=== PATIENT | female | born 1995 | race Hispanic/Latino ===

== ENCOUNTER 2019-04-03 13:18 | Emergency (ER) | payer SELFPAY ==
[2019-04-03] MEDS ORDERED: ALBUTEROL 2.5 MG/3 ML NEBU IH ONE (13:44)
[2019-04-03] MEDS ORDERED: MAGNESIUM SULFATE 2 GM/50 ML BAG IV ONE (13:44)
[2019-04-03] MEDS ORDERED: methylPREDNISolone Sod Succinate 125 MG/2 ML INJ IV ONE (13:44)
[2019-04-03] MEDS ORDERED: SODIUM CHLORIDE 0.9% 500 ML 500 ML IV ONE (13:44)
[2019-04-03] MEDS ORDERED: EPINEPHrine/PF (1:1,000) 1 MG/1 ML INJ SUB-Q ONE (13:45)
--- NOTE | 2019-04-03 13:49 | Event Note ---
Date: 04/03/19 Medical screening examination note: 23-year-old female with a history of morbid obesity, asthma, on multiple maintenance medications, reports multiple history of hospitalizations, 2 lifetime intubations, denies DVT and pulmonary embolism risk factors, presenting with cough, wheezing, shortness of breath, suspicious for asthma exacerbation. Albuterol, steroids, magnesium, fluids, subcutaneous epinephrine ordered. Patient to be placed on phototypesetting equipment monitor.
--- NOTE | 2019-04-03 14:22 | Emergency Department Report ---
ED Asthma HPI - General Chief Complaint: Adult Asthma Stated Complaint: SOB Time Seen by Provider: 04/03/19 14:20 Source: patient Mode of arrival: Ambulatory Limitations: No Limitations - History of Present Illness Initial Comments: Patient is a 23-year-old female that presents emergent complaints of shortness of breath and asthmatic sounds and cough. Patient states her cough is dry. Patient states her symptoms started at 10 AM this morning. Patient states she's been taking her nebulizer with minimal relief. Patient denies chest pain. Patient denies fever and chills. . Patient states that intubated twice in the past for her asthma. MD Complaint: "asthma attack", shortness of breath, wheezing -: Sudden Asthma History: childhood onset, history of frequent attac, previously intubated Severity: severe Context: recent URI Associated Symptoms: dry cough. denies: productive cough, fever, chest pain, hemoptysis, leg edema, syncope Treatments Prior to Arrival: inhaled bronchodilator - Related Data Current Asthma Therapy: inhaled bronchodilator Previous Rx's Medication Instructions Recorded Last Taken Type Benzonatate [Tessalon Perles] 100 mg PO Q8HR #20 capsule 02/23/18 Unknown Rx predniSONE [Deltasone] 50 mg PO QDAY #7 tab 02/23/18 Unknown Rx Albuterol Sulfate [Ventolin HFA] 2 puff IH Q4H PRN #1 hfa.aer.ad 03/24/18 Unknown Rx ALBUTEROL Inhaler (OR & NICU) 2 puff IH QID PRN #1 inhalation 04/03/19 Unknown Rx [ProAir HFA Inhaler] Doxycycline Hyclate [Doxycycline 100 mg PO Q12HR 10 Days #20 tab 04/03/19 Unknown Rx Hyclate TAB] Prednisone [predniSONE 10 mg 10 mg PO .TAPER #1 tab.ds.pk 04/03/19 Unknown Rx (6-Day Pack, 21 Tabs)] Allergies Allergy/AdvReac Type Severity Reaction Status Date / Time chlorpheniramine Allergy Swelling Verified 04/03/19 13:20 [From Dallergy] phenylephrine [From Dallergy] Allergy Swelling Verified 04/03/19 13:20 scopolamine [From Dallergy] Allergy Swelling Verified 04/03/19 13:20 ED Review of Systems ROS: Stated complaint: SOB Other details as noted in HPI Constitutional: denies: chills, fever Eyes: denies: eye pain, eye discharge, vision change ENT: denies: ear pain, throat pain Respiratory: cough, shortness of breath, SOB with exertion, SOB at rest, wheezing Cardiovascular: denies: chest pain, palpitations Endocrine: no symptoms reported Gastrointestinal: denies: abdominal pain, nausea, diarrhea Genitourinary: denies: urgency, dysuria, discharge Musculoskeletal: denies: back pain, joint swelling, arthralgia Skin: denies: rash, lesions Neurological: denies: headache, weakness, paresthesias Psychiatric: denies: anxiety, depression Hematological/Lymphatic: denies: easy bleeding, easy bruising ED Past Medical Hx - Past Medical History Previous Medical History?: Yes Hx Asthma: Yes (intubated x2) - Surgical History Past Surgical History?: Yes Additional Surgical History: wisdom teeth - Family History Family history: no significant - Social History Smoking Status: Never Smoker Substance Use Type: None - Medications Home Medications: Home Medications Medication Instructions Recorded Confirmed Last Taken Type Benzonatate [Tessalon Perles] 100 mg PO Q8HR #20 capsule 02/23/18 Unknown Rx predniSONE [Deltasone] 50 mg PO QDAY #7 tab 02/23/18 Unknown Rx Albuterol Sulfate [Ventolin HFA] 2 puff IH Q4H PRN #1 hfa.aer.ad 03/24/18 Unknown Rx ALBUTEROL Inhaler (OR & NICU) 2 puff IH QID PRN #1 inhalation 04/03/19 Unknown Rx [ProAir HFA Inhaler] Doxycycline Hyclate [Doxycycline 100 mg PO Q12HR 10 Days #20 tab 04/03/19 Unknown Rx Hyclate TAB] Prednisone [predniSONE 10 mg 10 mg PO .TAPER #1 tab.ds.pk 04/03/19 Unknown Rx (6-Day Pack, 21 Tabs)] ED Physical Exam - General Limitations: No Limitations General appearance: alert, in no apparent distress - Head Head exam: Present: atraumatic, normocephalic - Eye Eye exam: Present: normal appearance - ENT ENT exam: Present: mucous membranes moist - Neck Neck exam: Present: normal inspection - Respiratory Respiratory exam: Present: wheezes. Absent: respiratory distress - Cardiovascular Cardiovascular Exam: Present: regular rate, normal rhythm. Absent: systolic murmur, diastolic murmur, rubs, gallop - GI/Abdominal GI/Abdominal exam: Present: soft, normal bowel sounds - Extremities Exam Extremities exam: Present: normal inspection - Back Exam Back exam: Present: normal inspection - Neurological Exam Neurological exam: Present: alert, oriented X3 - Psychiatric Psychiatric exam: Present: normal affect, normal mood - Skin Skin exam: Present: warm, dry, intact, normal color. Absent: rash ED Course - Reevaluation(s) Reevaluation #1: Patient's lung sounds are clear. Patient states she is feeling much better. Patient states she is feeling back to baseline. Patient will be given a refill of her albuterol inhaler and given Doxy and Medrol Dosepak. I discussed all findings with patient. I discussed plan of care patient. Patient agrees to plan of care. Patient stable for discharge. Patient be discharged home. Patient given discharge instructions. Patient voiced understanding of discharge instructions. 04/03/19 15:40 ED Medical Decision Making - Medical Decision Making Patient is a 23-year-old female up since emergency room with asthmatic breathing and shortness of breath. Patient found to have wheezing and bronchitis. Patient given magnesium, 1 nebulizer and site Medrol and patient's lung sounds improved. Patient never had any respiratory distress. Patient stable for discharge. Patient was discharged home with medications. Patient will be given a refill of her albuterol. Patient instructed to follow up with a subscription clerk and her primary care. - Differential Diagnosis asthma. Asthma exacerbation. Bronchitis. URI. Cough. Critical care attestation.: If time is entered above; I have spent that time in minutes in the direct care of this critically ill patient, excluding procedure time. ED Disposition Clinical Impression: Bronchitis, Cough Asthma exacerbation Qualifiers: Asthma severity: moderate Asthma persistence: persistent Qualified Code(s): J45.41 - Moderate persistent asthma with (acute) exacerbation Disposition: DC-01 TO HOME OR SELFCARE Is pt being admited?: No Does the pt Need Aspirin: No Condition: Stable Instructions: Acute Bronchitis (ED), Asthma (ED) Additional Instructions: Patient to follow-up with primary care in 2-3 days. Patient to follow-up with subscription clerk in 2-3 days. Patient to return to ER if condition worsens. Patient to rest. Patient to avoid strenuous exercise until cleared by primary care. Patient take meds as directed. Patient to take Tylenol or ibuprofen when necessary for pain or fever. Prescriptions: Doxycycline Hyclate [Doxycycline Hyclate TAB] 100 mg PO Q12HR 10 Days #20 tab Prednisone [predniSONE 10 mg (6-Day Pack, 21 Tabs)] 10 mg PO .TAPER #1 tab.ds.pk ALBUTEROL Inhaler (OR & NICU) [ProAir HFA Inhaler] 2 puff IH QID PRN #1 inhalation PRN Reason: Shortness Of Breath Referrals: BRIAN ALEXANDER MD [Staff Physician] - 2-3 Days Time of Disposition: 15:42
== END 2019-04-03 16:50 | disposition home or self-care (01) ==
LOC: ED 13:18
DX: J45.41 Moderate persistent asthma with (acute) exacerbation (principal); Z79.899 Other long term (current) drug therapy; Z88.8 Allergy status to other drugs, medicaments and biological substances
CPT/HCPCS: 94640; 96365; 96375; 99283; J2930; J3475; J7040

== ENCOUNTER 2020-03-30 16:25 | Emergency (ER) | payer SELFPAY ==
[2020-03-30] MEDS ORDERED: MAGNESIUM SULFATE 2 GM/50 ML BAG IV ONE (16:56)
[2020-03-30] MEDS ORDERED: SODIUM CHLORIDE 0.9% 1000 ML 1,000 ML IV ONE (16:56)
[2020-03-30] MEDS ORDERED: ALBUTEROL 2.5 MG/3 ML NEBU IH ONE (16:56)
[2020-03-30] MEDS ORDERED: IPRATROPIUM 0.02% NEBU 2.5 ML IH ONE (16:56)
[2020-03-30] MEDS ORDERED: dexAMETHasone 20 MG/5 ML VIAL IV ONE (16:57)
--- NOTE | 2020-03-30 16:59 | Event Note ---
ED Screening Note Date of service: 03/30/20 Time: 16:58 ED Screening Note: 24-year-old female with a history of asthma presents to the emergency room for shortness of breath and wheezing since today. She has been initiating her albuterol treatments but no relief. Patient does have a history of being intubated. This initial assessment/diagnostic orders/clinical plan/treatment(s) is/are subject to change based on patients health status, clinical progression and re- assessment by fellow clinical providers in the ED. Further treatment and workup at subsequent clinical providers discretion. Patient/guardian urged not to elope from the ED as their condition may be serious if not clinically assessed and managed. Initial orders include:
--- NOTE | 2020-03-30 20:32 | XRay Report ---
CHEST 2 VIEWS INDICATION / CLINICAL INFORMATION: sob, cough and rales. COMPARISON: 03/23/18 FINDINGS: SUPPORT DEVICES: None. HEART / MEDIASTINUM: No significant abnormality. LUNGS / PLEURA: No significant pulmonary or pleural abnormality. No pneumothorax. ADDITIONAL FINDINGS: No significant additional findings. IMPRESSION: 1. No acute findings. Signer Name: Alhaji Osullivan MD Signed: 03/30/2020 8:27 PM Workstation Name: [id number]
--- NOTE | 2020-03-30 20:52 | Emergency Department Report ---
ED Shortness of Breath HPI - General Chief Complaint: Adult Asthma Stated Complaint: DIFFICULTY BREATHING Source: patient Mode of arrival: Ambulatory Limitations: No Limitations - History of Present Illness Initial Comments: Patient is a 24-year-old white female with a history of morbid obesity and asthma who presents to the ED with complaint of acute onset persistent shortness of breath, dry cough with wheezing for the last 2 days. Patient states that she has been using her albuterol inhaler and nebulizers at home with no relief. Patient states that in the last 8 hours the symptoms have worsened. Patient denies chest pain, dizziness, syncope, fever, chills, nausea and vomiting, abdominal pain, diarrhea, sore throat, nasal and sinus congestion or back pain. MD Complaint: shortness of breath, cough, "asthma attack" -: Sudden, days(s) (2) Severity: moderate Pain Scale: 4 Quality: other (chest tightness) Consistency: constant Improves With: nothing Worsens With: nothing Known History Of: asthma Associated Symptoms: cough Treatments Prior to Arrival: bronchodilator - Related Data Home Oxygen Therapy: No Previous Rx's Medication Instructions Recorded Last Taken Type predniSONE [Deltasone] 50 mg PO QDAY #7 tab 02/23/18 Unknown Rx Albuterol Sulfate [Ventolin HFA] 2 puff IH Q4H PRN #1 hfa.aer.ad 03/24/18 Unknown Rx Albuterol Mdi (or & Nicu Only) 2 puff IH QID PRN #1 inhalation 04/03/19 Unknown Rx [ProAir HFA Inhaler] Doxycycline Hyclate [Doxycycline 100 mg PO Q12HR 10 Days #20 tab 04/03/19 Unknown Rx Hyclate TAB] Benzonatate [Tessalon Perles] 100 mg PO Q8HR #30 capsule 03/30/20 Unknown Rx Prednisone [predniSONE 10 mg 10 mg PO .TAPER #21 tab.ds.pk 03/30/20 Unknown Rx (6-Day Pack, 21 Tabs)] Allergies Allergy/AdvReac Type Severity Reaction Status Date / Time chlorpheniramine Allergy Swelling Verified 04/03/19 13:20 [From Dallergy] phenylephrine [From Dallergy] Allergy Swelling Verified 04/03/19 13:20 scopolamine [From Dallergy] Allergy Swelling Verified 04/03/19 13:20 ED Review of Systems ROS: Stated complaint: DIFFICULTY BREATHING Other details as noted in HPI Constitutional: denies: chills, fever Eyes: denies: eye pain, eye discharge, vision change ENT: denies: ear pain, throat pain Respiratory: cough, shortness of breath, wheezing Cardiovascular: denies: chest pain, palpitations Endocrine: no symptoms reported Gastrointestinal: denies: abdominal pain, nausea, diarrhea Genitourinary: denies: urgency, dysuria, discharge Musculoskeletal: denies: back pain, joint swelling, arthralgia Skin: denies: rash, lesions Neurological: denies: headache, weakness, paresthesias Psychiatric: denies: anxiety, depression Hematological/Lymphatic: denies: easy bleeding, easy bruising ED Past Medical Hx - Past Medical History Previous Medical History?: Yes Hx Asthma: Yes (intubated x2) - Surgical History Past Surgical History?: No Additional Surgical History: wisdom teeth - Social History Smoking Status: Never Smoker Substance Use Type: None - Medications Home Medications: Home Medications Medication Instructions Recorded Confirmed Last Taken Type predniSONE [Deltasone] 50 mg PO QDAY #7 tab 02/23/18 Unknown Rx Albuterol Sulfate [Ventolin HFA] 2 puff IH Q4H PRN #1 hfa.aer.ad 03/24/18 Unknown Rx Albuterol Mdi (or & Nicu Only) 2 puff IH QID PRN #1 inhalation 04/03/19 Unknown Rx [ProAir HFA Inhaler] Doxycycline Hyclate [Doxycycline 100 mg PO Q12HR 10 Days #20 tab 04/03/19 Unknown Rx Hyclate TAB] Benzonatate [Tessalon Perles] 100 mg PO Q8HR #30 capsule 03/30/20 Unknown Rx Prednisone [predniSONE 10 mg 10 mg PO .TAPER #21 tab.ds.pk 03/30/20 Unknown Rx (6-Day Pack, 21 Tabs)] ED Physical Exam - General Limitations: No Limitations General appearance: alert, in no apparent distress - Head Head exam: Present: atraumatic, normocephalic, normal inspection - Eye Eye exam: Present: normal appearance, PERRL, EOMI Pupils: Present: normal accommodation - ENT ENT exam: Present: normal exam, normal orophraynx, mucous membranes moist, TM's normal bilaterally, normal external ear exam - Neck Neck exam: Present: normal inspection, full ROM - Respiratory Respiratory exam: Present: wheezes (Diffuse coarse wheezes throughout). Absent: respiratory distress, rales, rhonchi, stridor, chest wall tenderness, accessory muscle use, decreased breath sounds, prolonged expiratory - Cardiovascular Cardiovascular Exam: Present: normal rhythm, tachycardia, normal heart sounds. Absent: systolic murmur, diastolic murmur, rubs, gallop - GI/Abdominal GI/Abdominal exam: Present: soft, normal bowel sounds. Absent: tenderness, guarding, rebound, hyperactive bowel sounds, hypoactive bowel sounds, organomegaly - Extremities Exam Extremities exam: Present: normal inspection, full ROM, normal capillary refill - Back Exam Back exam: Present: normal inspection, full ROM. Absent: tenderness, CVA tender ness (R), CVA tenderness (L), muscle spasm, paraspinal tenderness, vertebral tenderness - Neurological Exam Neurological exam: Present: alert, oriented X3, CN II-XII intact, normal gait, reflexes normal - Psychiatric Psychiatric exam: Present: normal affect, normal mood, anxious - Skin Skin exam: Present: warm, dry, intact, normal color. Absent: rash ED Course Vital Signs 03/30/20 03/30/20 16:39 17:10 Temperature 98.0 F Pulse Rate 121 H Pulse Rate [ 100 H Anterior Bilateral Throughout] Respiratory 26 H Rate Respiratory 19 Rate [Anterior Bilateral Throughout] Blood Pressure 142/87 [Right] O2 Sat by Pulse 96 Oximetry ED Medical Decision Making - Radiology Data Radiology results: report reviewed, image reviewed Findings [address] [address] XRay Report Signed Patient: JOSE SHAH MR#: [id number] : 1995 Acct:[id number] Age/Sex: 24 / F ADM Date: 03/30/20 Loc: ED Attending Dr: Ordering Physician: FITO SUN Date of Service: 03/30/20 Procedure(s): XR chest routine 2V Accession Number(s): [id number] cc: FITO SUN Fluoro Time In Minutes: CHEST 2 VIEWS INDICATION / CLINICAL INFORMATION: sob, cough and rales. COMPARISON: 03/23/18 FINDINGS: SUPPORT DEVICES: None. HEART / MEDIASTINUM: No significant abnormality. LUNGS / PLEURA: No significant pulmonary or pleural abnormality. No pneumothorax. ADDITIONAL FINDINGS: No significant additional findings. IMPRESSION: 1. No acute findings. Signer Name: Alhaji Osullivan MD Signed: 03/30/2020 8:27 PM Workstation Name: [id number] Transcribed By: DT Dictated By: Joseph Osullivan MD Electronically Authenticated By: Joseph Osullivan MD Signed Date/Time: 03/30/202026 DD/ 25 TD/TT: - Medical Decision Making This is a 24-year-old white female with a history of morbid obesity and asthma who presents to the ED with complaint of acute onset persistent shortness of breath, dry cough with wheezing for the last 2 days. Patient states that she has been using her albuterol inhaler and nebulizers at home with no relief. Patient states that in the last 8 hours the symptoms have worsened. In the ED, patient is alert and oriented x3 and is not in distress. Patient was treated in the ED with nebulizers and magnesium sulfate. Patient also received steroid injection in the ED. Chest x-ray shows no acute cardiopulmonary abnormalities or pneumonitis. On reevaluation, patient's shortness of breath and wheezing resolved, patient felt better and the oxygen saturation ranged from 98 to 99% in room air. Patient was discharged home on medications including oral steroids and Tessalon Perles and was advised to continue using her bronchodilators as needed and to follow-up with her primary care physician in 3 to 5 days for reevaluation or return to the ED immediately if symptoms get worse. - Differential Diagnosis Asthma; Bronchitis; Pneumonia; Anxiety; URI Critical care attestation.: If time is entered above; I have spent that time in minutes in the direct care of this critically ill patient, excluding procedure time. ED Disposition Clinical Impression: Mild intermittent acute asthmatic bronchitis Asthmatic bronchitis with exacerbation Qualifiers: Asthma severity: moderate Asthma persistence: persistent Qualified Code(s): J45.41 - Moderate persistent asthma with (acute) exacerbation Disposition: - TO HOME OR SELFCARE Is pt being admited?: No Does the pt Need Aspirin: No Condition: Stable Instructions: Chronic Bronchitis (ED), Bronchospasm, Adult, [id number], Cough, Adult, [id number], Asthma, Adult, [id number] Additional Instructions: Chest x-ray shows no acute cardiopulmonary abnormalities or pneumonitis. Therefore take medications and your regular asthma medications at home, follow- up with your primary care physician in 3 to 5 days for reevaluation. Return to the ED immediately if symptoms get worse. Prescriptions: Prednisone [predniSONE 10 mg (6-Day Pack, 21 Tabs)] 10 mg PO .TAPER #21 tab.ds.pk Benzonatate [Tessalon Perles] 100 mg PO Q8HR #30 capsule Referrals: [facility] [Provider Group] - 3-5 Days Time of Disposition: 20:55 Print Language: SURINAMESE
[2020-03-30 21:27] VITALS: BP 117/72
== END 2020-03-30 21:58 | disposition home or self-care (01) ==
LOC: ED 16:25
DX: J45.901 Unspecified asthma with (acute) exacerbation (principal); Z79.899 Other long term (current) drug therapy; Z88.8 Allergy status to other drugs, medicaments and biological substances
CPT/HCPCS: 71046; 94644; 96365; 96375; 99283; J1100; J3475; J7030

== ENCOUNTER 2020-09-27 09:59 | Emergency (ER) | payer SELFPAY ==
[2020-09-27] MEDS ORDERED: dexAMETHasone 20 MG/5 ML VIAL IM ONE (10:24)
[2020-09-27] MEDS ORDERED: ALBUTEROL 2.5 MG/3 ML NEBU IH ONE (10:24)
[2020-09-27] MEDS ORDERED: IPRATROPIUM 0.02% NEBU 2.5 ML IH ONE (10:24)
--- NOTE | 2020-09-27 10:25 | Emergency Department Report ---
ED Asthma HPI - General Chief Complaint: Chest Pain Stated Complaint: CHEST PAIN Time Seen by Provider: 09/27/20 10:22 Source: patient Mode of arrival: Ambulatory Limitations: No Limitations - History of Present Illness Initial Comments: Patient is a 25-year-old female who presents emergency room complaints of an asthma exacerbation that began 2 days ago. She has associated chest tightness, shortness of breath, wheezing, dry cough. She denies any fever, productive cough, nausea, vomiting, diarrhea. She states that she does use nebulizer treatments at home and has inhalers. She states that she follows up with her primary care doctor regarding her asthma. She denies any recent travel or any sick contacts that she is aware of. She denies any other past medical history. - Related Data Previous Rx's Medication Instructions Recorded Last Taken Type predniSONE [Deltasone] 50 mg PO QDAY #7 tab 02/23/18 Unknown Rx Albuterol Sulfate [Ventolin HFA] 2 puff IH Q4H PRN #1 hfa.aer.ad 03/24/18 Unknown Rx Albuterol Mdi (or & Nicu Only) 2 puff IH QID PRN #1 inhalation 04/03/19 Unknown Rx [ProAir HFA Inhaler] Doxycycline Hyclate [Doxycycline 100 mg PO Q12HR 10 Days #20 tab 04/03/19 Unknown Rx Hyclate TAB] Benzonatate [Tessalon Perles] 100 mg PO Q8HR #30 capsule 03/30/20 Unknown Rx Prednisone [predniSONE 10 mg 10 mg PO .TAPER #21 tab.ds.pk 03/30/20 Unknown Rx (6-Day Pack, 21 Tabs)] Albuterol Sulfate [Proventil Hfa] 1 - 2 puff IH TID PRN #1 hfa.aer.ad 09/27/20 Unknown Rx predniSONE [Deltasone] 40 mg PO QDAY 5 Days #10 tab 09/27/20 Unknown Rx Allergies Allergy/AdvReac Type Severity Reaction Status Date / Time chlorpheniramine Allergy Swelling Verified 09/27/20 10:01 [From Dallergy] phenylephrine [From Dallergy] Allergy Swelling Verified 09/27/20 10:01 scopolamine [From Dallergy] Allergy Swelling Verified 09/27/20 10:01 ED Review of Systems ROS: Stated complaint: CHEST PAIN Other details as noted in HPI Comment: All other systems reviewed and negative ED Past Medical Hx - Past Medical History Hx Asthma: Yes (intubated x2) - Surgical History Additional Surgical History: wisdom teeth - Social History Smoking Status: Never Smoker Substance Use Type: None - Medications Home Medications: Home Medications Medication Instructions Recorded Confirmed Last Taken Type predniSONE [Deltasone] 50 mg PO QDAY #7 tab 02/23/18 Unknown Rx Albuterol Sulfate [Ventolin HFA] 2 puff IH Q4H PRN #1 hfa.aer.ad 03/24/18 Unknown Rx Albuterol Mdi (or & Nicu Only) 2 puff IH QID PRN #1 inhalation 04/03/19 Unknown Rx [ProAir HFA Inhaler] Doxycycline Hyclate [Doxycycline 100 mg PO Q12HR 10 Days #20 tab 04/03/19 Unknown Rx Hyclate TAB] Benzonatate [Tessalon Perles] 100 mg PO Q8HR #30 capsule 03/30/20 Unknown Rx Prednisone [predniSONE 10 mg 10 mg PO .TAPER #21 tab.ds.pk 03/30/20 Unknown Rx (6-Day Pack, 21 Tabs)] Albuterol Sulfate [Proventil Hfa] 1 - 2 puff IH TID PRN #1 hfa.aer.ad 09/27/20 Unknown Rx predniSONE [Deltasone] 40 mg PO QDAY 5 Days #10 tab 09/27/20 Unknown Rx ED Physical Exam - General Limitations: No Limitations General appearance: alert, in no apparent distress - Head Head exam: Present: atraumatic, normocephalic - Eye Eye exam: Present: normal appearance - ENT ENT exam: Present: mucous membranes moist - Respiratory Respiratory exam: Present: wheezes (bilaterally), prolonged expiratory. Absent: respiratory distress, rales, rhonchi, stridor, chest wall tenderness, accessory muscle use, decreased breath sounds - Cardiovascular Cardiovascular Exam: Present: regular rate, normal rhythm, normal heart sounds. Absent: systolic murmur, diastolic murmur, rubs, gallop - Neurological Exam Neurological exam: Present: alert, oriented X3 - Psychiatric Psychiatric exam: Present: normal affect, normal mood - Skin Skin exam: Present: warm, dry, intact ED Course Vital Signs 09/27/20 09/27/20 10:11 12:10 Temperature 98.5 F 98.2 F Pulse Rate 93 H 87 Respiratory 20 20 Rate Blood Pressure 153/93 Blood Pressure 148/87 [Left] O2 Sat by Pulse 98 99 Oximetry ED Medical Decision Making - Medical Decision Making Patient is a 25-year-old female who presents emergency room complaints of an asthma exacerbation that began 2 days ago. She has associated chest tightness, shortness of breath, wheezing, dry cough. She denies any fever, productive cough, nausea, vomiting, diarrhea. She states that she does use nebulizer treatments at home and has inhalers. She states that she follows up with her primary care doctor regarding her asthma. She denies any recent travel or any sick contacts that she is aware of. She denies any other past medical history. Vitals are normal. On exam patient has wheezing bilaterally and prolonged expiratory phase. Patient given steroid IM and nebulizer treatment. On reexamination patient is feeling much better, wheezing has significantly improved. Patient has no clinical signs of bacterial pneumonia or bacterial bronchitis. Patient given prescription for 5 days of steroids. She states she needs a refill of her albuterol inhaler. She states that she has plenty of nebulizer solution at home. Advised patient Please take medication as prescribed. Please see your treatments every 4-6 hours as needed. Follow-up with your primary care doctor. Return to emergency room for any new or worsening symptoms. Critical care attestation.: If time is entered above; I have spent that time in minutes in the direct care of this critically ill patient, excluding procedure time. ED Disposition Clinical Impression: Asthma exacerbation Qualifiers: Asthma severity: unspecified severity Asthma persistence: unspecified Qualified Code(s): J45.901 - Unspecified asthma with (acute) exacerbation Disposition: DC-01 TO HOME OR SELFCARE Is pt being admited?: No Does the pt Need Aspirin: No Condition: Stable Instructions: Asthma, Adult Additional Instructions: Please take medication as prescribed. Please see your treatments every 4-6 hours as needed. Follow-up with your primary care doctor. Return to emergency room for any new or worsening symptoms. Prescriptions: predniSONE [Deltasone] 40 mg PO QDAY 5 Days #10 tab Albuterol Sulfate [Proventil Hfa] 1 - 2 puff IH TID PRN #1 hfa.aer.ad PRN Reason: shortness of breath/wheezing Referrals: PRIMARY CARE, [Primary Care Provider] - 2-3 Days Forms: Work/School Release Form(ED) Time of Disposition: 11:46 Print Language: VENEZUELAN
[2020-09-27 12:11] VITALS: BP 148/87
--- NOTE | 2020-10-04 11:06 | Electrocardiograph Report ---
[facility] Test Date: 2020-09-27 Test Time: 10:08:37 Pat Name: JOSE SHAH Department: Room: Gender: F Night Nurse: ADELE : 1995 Requested By: JUSTIN PUTNAM Order Number: [id number] Reading MD: Geovanni Moctezuma Measurements Intervals [place] Rate: 95 P: 18 DC: 119 QRS: 17 QRSD: 81 T: 13 QT: 355 QTc: 445 Interpretive Statements Sinus rhythm No previous ECG available for comparison Electronically Signed On 10-04-2020 11:06:22 EDT by Geovanni Moctezuma
== END 2020-09-27 12:11 | disposition home or self-care (01) ==
LOC: ED 09:59
DX: J45.901 Unspecified asthma with (acute) exacerbation (principal); Z98.890 Other specified postprocedural states; Z88.8 Allergy status to other drugs, medicaments and biological substances; Z79.899 Other long term (current) drug therapy
CPT/HCPCS: 93005; 94640; 96372; 99283; J1100; 94644

== ENCOUNTER 2021-03-17 16:31 | Inpatient (IN) | payer SELFPAY ==
[2021-03-17] MEDS ORDERED: ALBUTEROL 2.5 MG/3 ML NEBU IH ONE ×2 (17:02→19:12)
[2021-03-17] MEDS ORDERED: MAGNESIUM SULFATE 2 GM/50 ML BAG IV ONE (17:02)
[2021-03-17] MEDS ORDERED: IPRATROPIUM 0.02% NEBU 2.5 ML IH ONE (17:02)
--- NOTE | 2021-03-17 17:06 | Emergency Department Report ---
<SENAIT AGUSTIN - Last Filed: 03/17/21 19:56> ED Asthma HPI - General Chief Complaint: Adult Asthma Stated Complaint: SOB Time Seen by Provider: 03/17/21 16:56 - Related Data Previous Rx's Medication Instructions Recorded Last Taken Type predniSONE [Deltasone] 50 mg PO QDAY #7 tab 02/23/18 Unknown Rx Albuterol Sulfate [Ventolin HFA] 2 puff IH Q4H PRN #1 hfa.aer.ad 03/24/18 Unknown Rx Albuterol Mdi (or & Nicu Only) 2 puff IH QID PRN #1 inhalation 04/03/19 Unknown Rx [ProAir HFA Inhaler] Doxycycline Hyclate [Doxycycline 100 mg PO Q12HR 10 Days #20 tab 04/03/19 Unknown Rx Hyclate TAB] Benzonatate [Tessalon Perles] 100 mg PO Q8HR #30 capsule 03/30/20 Unknown Rx Prednisone [predniSONE 10 mg 10 mg PO .TAPER #21 tab.ds.pk 03/30/20 Unknown Rx (6-Day Pack, 21 Tabs)] Albuterol Sulfate [Proventil Hfa] 1 - 2 puff IH TID PRN #1 hfa.aer.ad 09/27/20 Unknown Rx predniSONE [Deltasone] 40 mg PO QDAY 5 Days #10 tab 09/27/20 Unknown Rx Allergies Allergy/AdvReac Type Severity Reaction Status Date / Time chlorpheniramine Allergy Swelling Verified 09/27/20 10:01 [From Dallergy] phenylephrine [From Dallergy] Allergy Swelling Verified 09/27/20 10:01 scopolamine [From Dallergy] Allergy Swelling Verified 09/27/20 10:01 ED Past Medical Hx - Medications Home Medications: Home Medications Medication Instructions Recorded Confirmed Last Taken Type predniSONE [Deltasone] 50 mg PO QDAY #7 tab 02/23/18 Unknown Rx Albuterol Sulfate [Ventolin HFA] 2 puff IH Q4H PRN #1 hfa.aer.ad 03/24/18 Unknown Rx Albuterol Mdi (or & Nicu Only) 2 puff IH QID PRN #1 inhalation 04/03/19 Unknown Rx [ProAir HFA Inhaler] Doxycycline Hyclate [Doxycycline 100 mg PO Q12HR 10 Days #20 tab 04/03/19 Unknown Rx Hyclate TAB] Benzonatate [Tessalon Perles] 100 mg PO Q8HR #30 capsule 03/30/20 Unknown Rx Prednisone [predniSONE 10 mg 10 mg PO .TAPER #21 tab.ds.pk 03/30/20 Unknown Rx (6-Day Pack, 21 Tabs)] Albuterol Sulfate [Proventil Hfa] 1 - 2 puff IH TID PRN #1 hfa.aer.ad 09/27/20 Unknown Rx predniSONE [Deltasone] 40 mg PO QDAY 5 Days #10 tab 09/27/20 Unknown Rx ED Course - Reevaluation(s) Reevaluation #1: 03/17/21 19:13 Patient still wheezing. O2 sat 93 to 94%. Very symptomatic. Requesting additional therapy. Arterial blood gas, peak flow, repeat albuterol administration is requested. I discussed the possibility of admission with the patient. She is agreeable to this plan of care. Hospital physician is paged to arrange admission 03/17/21 19:56 Respiratory therapy unable to obtain ABG, they will reattempt. Peak flow 150, 200, 210. This is well below the patient's predicted volume. Hospital physician, Dr. Baxter to admit patient to the medical service. ED Medical Decision Making - Lab Data Result diagrams: 03/17/21 17:07 03/17/21 17:07 Vital Signs 03/17/21 03/17/21 03/17/21 16:39 17:03 17:25 Temperature 98.6 F Pulse Rate 127 H 113 H Pulse Rate [ Bilateral Throughout] Respiratory 19 22 24 Rate Respiratory Rate [Bilateral Throughout] Blood Pressure Blood Pressure 158/94 151/99 [Right] O2 Sat by Pulse 95 92 92 Oximetry 03/17/21 03/17/21 03/17/21 17:26 17:30 17:31 Temperature Pulse Rate 121 H Pulse Rate [ 136 H Bilateral Throughout] Respiratory 14 Rate Respiratory 22 Rate [Bilateral Throughout] Blood Pressure 151/99 Blood Pressure [Right] O2 Sat by Pulse 92 100 Oximetry 03/17/21 03/17/21 03/17/21 17:34 18:00 18:06 Temperature Pulse Rate 118 H 140 H 139 H Pulse Rate [ Bilateral Throughout] Respiratory 16 21 15 Rate Respiratory Rate [Bilateral Throughout] Blood Pressure 161/83 Blood Pressure 161/83 [Right] O2 Sat by Pulse 99 99 96 Oximetry 03/17/21 18:31 Temperature Pulse Rate 126 H Pulse Rate [ Bilateral Throughout] Respiratory 18 Rate Respiratory Rate [Bilateral Throughout] Blood Pressure 125/98 Blood Pressure [Right] O2 Sat by Pulse 93 Oximetry Lab Results 03/17/21 03/17/21 Range/Units 17:07 17:07 WBC 13.7 H (4.5-11.0) K/mm3 RBC 5.09 H (3.65-5.03) M/mm3 Hgb 13.9 (10.1-14.3) gm/dl Hct 42.2 (30.3-42.9) % MCV 83 (79-97) fl MCH 27 L (28-32) pg MCHC 33 (30-34) % RDW 13.9 (13.2-15.2) % Plt Count 310 (140-440) K/mm3 Add Manual Diff Complete Total Counted 100 Seg Neutrophils % [employer] Seg Neuts % (Manual) 89.0 H (40.0-70.0) % Lymphocytes % (Manual) 6.0 L (13.4-35.0) % Monocytes % (Manual) 4.0 (0.0-7.3) % Eosinophils % (Manual) 1.0 (0.0-4.3) % Nucleated RBC % Not Reportable Seg Neutrophils # Man 12.2 H (1.8-7.7) K/mm3 Band Neutrophils # 0.0 K/mm3 Lymphocytes # (Manual) 0.8 L (1.2-5.4) K/mm3 Abs React Lymphs (Man) 0.0 K/mm3 Monocytes # (Manual) 0.5 (0.0-0.8) K/mm3 Eosinophils # (Manual) 0.1 (0.0-0.4) K/mm3 Basophils # (Manual) 0.0 (0.0-0.1) K/mm3 Metamyelocytes # 0.0 K/mm3 Myelocytes # 0.0 K/mm3 Promyelocytes # 0.0 K/mm3 Blast Cells # 0.0 K/mm3 WBC Morphology Not Reportable Hypersegmented Neuts Not Reportable Hyposegmented Neuts Not Reportable Hypogranular Neuts Not Reportable Smudge Cells Not Reportable Toxic Granulation Not Reportable Toxic Vacuolation Not Reportable Dohle Bodies Not Reportable Pelger-Huet Anomaly Not Reportable Lucía Rods Not Reportable Platelet Estimate Not Reportable Clumped Platelets Not Reportable Plt Clumps, EDTA Not Reportable Large Platelets Not Reportable Giant Platelets Not Reportable Platelet Satelliting Not Reportable Plt Morphology Comment Not Reportable RBC Morphology Normal Dimorphic RBCs Not Reportable Polychromasia Not Reportable Hypochromasia Not Reportable Poikilocytosis Not Reportable Anisocytosis Not Reportable Microcytosis Not Reportable Macrocytosis Not Reportable Spherocytes Not Reportable Pappenheimer Bodies Not Reportable Sickle Cells Not Reportable Target Cells Not Reportable Tear Drop Cells Not Reportable Ovalocytes Not Reportable Helmet Cells Not Reportable [place]re[place] Bodies Not Reportable [place] Rings Not Reportable [place] Cells Not Reportable Bite Cells Not Reportable Crenated Cell Not Reportable Elliptocytes Not Reportable Acanthocytes (Spur) Not Reportable Rouleaux Not Reportable Hemoglobin C Crystals Not Reportable Schistocytes Not Reportable Malaria parasites Not Reportable Tito Bodies Not Reportable Hem Pathologist Commnt No Sodium 140 (137-145) mmol/L Potassium 4.2 (3.6-5.0) mmol/L Chloride 104.0 (98-107) mmol/L Carbon Dioxide 21 L (22-30) mmol/L Anion Gap 19 mmol/L BUN 9 (7-17) mg/dL Creatinine 0.6 (0.6-1.2) mg/dL Estimated GFR > 60 ml/min BUN/Creatinine Ratio 15 % Glucose 139 H (65-100) mg/dL Calcium 9.4 (8.4-10.2) mg/dL - EKG Data -: EKG Interpreted by Tx EKG shows normal: sinus rhythm Rate: tachycardia - Radiology Data Radiology results: pending, report reviewed, image reviewed X-ray the chest is negative for acute finding Critical Care Time: Yes Critical care time in (mins) excluding proc time.: 35 ED Disposition Clinical Impression: Acute asthma exacerbation, Body mass index greater than 40 Disposition: 09 ADMITTED INPATIENT Is pt being admited?: Yes Does the pt Need Aspirin: No Condition: Good <FRANCES BLANC - Last Filed: 03/17/21 21:26> ED Asthma HPI - General Source: patient Mode of arrival: Ambulatory Limitations: No Limitations - History of Present Illness Initial Comments: 25-year-old female with a known history of asthma presents to the ER today with complaints of flareup of asthma. Patient states that symptoms started this morning. She states that she has been wheezing, productive cough, shortness of breath and chest tightness. She states that she has had 2 albuterol treatments today otherwise 45 minutes prior to arrival and she is also been using albuterol MDI but she has only used it twice. She states that she did take 20 mg of her leftover prednisone this morning. She states that her symptoms have still persisted despite the medications. She states that she has had rhinorrhea nasal congestion. She thinks that the flareup of asthma could be related to the weather change. She states that she has been admitted in the past for asthma, most recent was 4 months ago. She has been intubated in the past for asthma but that was when she was 12. She denies any fever, chills, nausea, vomiting or any additional symptoms at this time. She states that she does not smoke. MD Complaint: "asthma attack", shortness of breath, wheezing -: This morning ED Review of Systems ROS: Stated complaint: SOB Other details as noted in HPI Comment: All other systems reviewed and negative Constitutional: denies: chills, diaphoresis, fever, malaise, weakness Eyes: denies: eye pain, eye discharge, vision change ENT: denies: ear pain, throat pain, dental pain, hearing loss Respiratory: cough, shortness of breath, wheezing. denies: SOB with exertion, SOB at rest Cardiovascular: other (Chest tightness). denies: chest pain, palpitations Gastrointestinal: denies: abdominal pain, nausea, diarrhea, constipation, hematemesis, melena, hematochezia Genitourinary: denies: urgency, dysuria, frequency, hematuria, discharge, abnormal menses, dyspareunia Musculoskeletal: denies: back pain, joint swelling, arthralgia, myalgia Skin: denies: rash, lesions, change in color, change in hair/nails, pruritus Neurological: denies: headache, weakness, numbness, paresthesias, confusion, abnormal gait, vertigo Psychiatric: denies: anxiety, depression, auditory hallucinations, visual hallucinations, homicidal thoughts, suicidal thoughts Hematological/Lymphatic: denies: easy bleeding, easy bruising, swollen glands ED Past Medical Hx - Past Medical History Hx Asthma: Yes (intubated x2) - Surgical History Additional Surgical History: wisdom teeth - Social History Smoking Status: Never Smoker Substance Use Type: None ED Physical Exam - General Limitations: No Limitations General appearance: alert, in no apparent distress, obese - Head Head exam: Present: atraumatic, normocephalic, normal inspection - Neck Neck exam: Present: normal inspection, full ROM. Absent: meningismus - Respiratory Respiratory exam: Present: normal lung sounds bilaterally, wheezes (Mild to moderate expiratory diffuse wheezing noted). Absent: rales, rhonchi, chest wall tenderness, accessory muscle use, decreased breath sounds, prolonged expiratory - Cardiovascular Cardiovascular Exam: Present: regular rate, normal rhythm, normal heart sounds - GI/Abdominal GI/Abdominal exam: Present: soft. Absent: distended, tenderness, guarding, rebound - Neurological Exam Neurological exam: Present: alert, oriented X3, CN II-XII intact, normal gait - Psychiatric Psychiatric exam: Present: normal affect, normal mood - Skin Skin exam: Present: intact ED Course Vital Signs 03/17/21 03/17/21 03/17/21 16:39 17:03 17:25 Temperature 98.6 F Pulse Rate 127 H 113 H Pulse Rate [ Bilateral Throughout] Respiratory 19 22 24 Rate Respiratory Rate [Bilateral Throughout] Blood Pressure Blood Pressure 158/94 151/99 [Right] O2 Sat by Pulse 95 92 92 Oximetry 03/17/21 03/17/21 03/17/21 17:26 17:30 17:31 Temperature Pulse Rate 121 H Pulse Rate [ 136 H Bilateral Throughout] Respiratory 14 Rate Respiratory 22 Rate [Bilateral Throughout] Blood Pressure 151/99 Blood Pressure [Right] O2 Sat by Pulse 92 100 Oximetry 03/17/21 03/17/21 03/17/21 17:34 18:00 18:06 Temperature Pulse Rate 118 H 140 H 139 H Pulse Rate [ Bilateral Throughout] Respiratory 16 21 15 Rate Respiratory Rate [Bilateral Throughout] Blood Pressure 161/83 Blood Pressure 161/83 [Right] O2 Sat by Pulse 99 99 96 Oximetry 03/17/21 03/17/21 03/17/21 18:31 19:01 19:08 Temperature Pulse Rate 126 H 125 H Pulse Rate [ Bilateral Throughout] Respiratory 18 16 20 Rate Respiratory Rate [Bilateral Throughout] Blood Pressure 125/98 149/77 Blood Pressure [Right] O2 Sat by Pulse 93 94 98 Oximetry 03/17/21 03/17/21 03/17/21 19:31 19:45 20:01 Temperature Pulse Rate 125 H 145 H Pulse Rate [ Bilateral Throughout] Respiratory 18 16 Rate Respiratory 20 Rate [Bilateral Throughout] Blood Pressure 144/88 144/88 Blood Pressure [Right] O2 Sat by Pulse 94 100 Oximetry 03/17/21 03/17/21 20:31 21:00 Temperature Pulse Rate 136 H 136 H Pulse Rate [ Bilateral Throughout] Respiratory 32 H 30 H Rate Respiratory Rate [Bilateral Throughout] Blood Pressure 162/94 115/58 Blood Pressure [Right] O2 Sat by Pulse 96 93 Oximetry ED Medical Decision Making - Lab Data Result diagrams: 03/17/21 17:07 03/17/21 17:07 - Medical Decision Making Patient turned over to Dr. Morley. See his note for details. Critical care attestation.: If time is entered above; I have spent that time in minutes in the direct care of this critically ill patient, excluding procedure time.
[2021-03-17 17:21] LABS: Hematocrit 42.2 % (30.3-42.9); Hemoglobin 13.9 gm/dl (10.1-14.3); Mean Corpuscular HGB Conc 33 % (30-34); Mean Corpuscular Volume 83 fl (79-97); Platelet Count 310 K/mm3 (140-440); Red Blood Count 5.09 M/mm3 (3.65-5.03); Red Cell Distribution Width 13.9 % (13.2-15.2)
--- NOTE | 2021-03-17 17:37 | Event Note ---
Date of service: 03/17/21 Face to Face: For this encounter I have reviewed the PA/CLOTH BLEACHING SUPERVISOR documentation, treatment plan, medical decision making, and I had face to face time with this patient. Patient is a 25-year-old female, with a history of asthma, body mass index 48.7, multiple hospitalizations for asthma exacerbations, 2 lifetime intubations, who presents to the ER with her typical complaint of asthma attack. She complains of her typical chest tightness, cough, wheezing and shortness of breath. She states that she is not . She denies travel, surgery, immobilization, leg pain or leg swelling, DVT/PE risk factors. Triggers for asthma include cold weather, change of seasons. She feels like this is consistent with her prior asthma attacks, and believes that her typical trigger today is likely cold weather. Laboratory studies ordered, prior to my personal evaluation, leukocytosis is likely a stress reaction. We will give the patient albuterol, Atrovent, steroids, magnesium, fluids, and subcutaneous epinephrine. We will reassess after completion of the aforementioned therapies. I discussed this with the jordan muniz. She articulated understanding. Currently awaiting x-ray the chest, and EKG. 03/17/2021; 06: 5 0 p.m. EKG interpreted at 18: 50 Sinus rhythm, tachycardia, rate 131 bpm. Normal axis, QTC 4 5 4 ms. Motion artifact. Abnormal EKG. Not a STEMI. Tachycardia likely secondary to albuterol, and epinephrine Vital Signs 03/17/21 03/17/21 03/17/21 16:39 17:03 17:25 Temperature 98.6 F Pulse Rate 127 H 113 H Pulse Rate [ Bilateral Throughout] Respiratory 19 22 24 Rate Respiratory Rate [Bilateral Throughout] Blood Pressure 158/94 151/99 [Right] O2 Sat by Pulse 95 92 92 Oximetry 03/17/21 03/17/21 03/17/21 17:30 17:34 18:06 Temperature Pulse Rate 118 H 139 H Pulse Rate [ 136 H Bilateral Throughout] Respiratory 16 15 Rate Respiratory 22 Rate [Bilateral Throughout] Blood Pressure 161/83 [Right] O2 Sat by Pulse 99 96 Oximetry Lab Results 03/17/21 03/17/21 Range/Units 17:07 17:07 WBC 13.7 H (4.5-11.0) K/mm3 RBC 5.09 H (3.65-5.03) M/mm3 Hgb 13.9 (10.1-14.3) gm/dl Hct 42.2 (30.3-42.9) % MCV 83 (79-97) fl MCH 27 L (28-32) pg MCHC 33 (30-34) % RDW 13.9 (13.2-15.2) % Plt Count 310 (140-440) K/mm3 Add Manual Diff Complete Total Counted 100 Seg Neutrophils % [employer] Seg Neuts % (Manual) 89.0 H (40.0-70.0) % Lymphocytes % (Manual) 6.0 L (13.4-35.0) % Monocytes % (Manual) 4.0 (0.0-7.3) % Eosinophils % (Manual) 1.0 (0.0-4.3) % Nucleated RBC % Not Reportable Seg Neutrophils # Man 12.2 H (1.8-7.7) K/mm3 Band Neutrophils # 0.0 K/mm3 Lymphocytes # (Manual) 0.8 L (1.2-5.4) K/mm3 Abs React Lymphs (Man) 0.0 K/mm3 Monocytes # (Manual) 0.5 (0.0-0.8) K/mm3 Eosinophils # (Manual) 0.1 (0.0-0.4) K/mm3 Basophils # (Manual) 0.0 (0.0-0.1) K/mm3 Metamyelocytes # 0.0 K/mm3 Myelocytes # 0.0 K/mm3 Promyelocytes # 0.0 K/mm3 Blast Cells # 0.0 K/mm3 WBC Morphology Not Reportable Hypersegmented Neuts Not Reportable Hyposegmented Neuts Not Reportable Hypogranular Neuts Not Reportable Smudge Cells Not Reportable Toxic Granulation Not Reportable Toxic Vacuolation Not Reportable Dohle Bodies Not Reportable Pelger-Huet Anomaly Not Reportable Lucía Rods Not Reportable Platelet Estimate Not Reportable Clumped Platelets Not Reportable Plt Clumps, EDTA Not Reportable Large Platelets Not Reportable Giant Platelets Not Reportable Platelet Satelliting Not Reportable Plt Morphology Comment Not Reportable RBC Morphology Normal Dimorphic RBCs Not Reportable Polychromasia Not Reportable Hypochromasia Not Reportable Poikilocytosis Not Reportable Anisocytosis Not Reportable Microcytosis Not Reportable Macrocytosis Not Reportable Spherocytes Not Reportable Pappenheimer Bodies Not Reportable Sickle Cells Not Reportable Target Cells Not Reportable Tear Drop Cells Not Reportable Ovalocytes Not Reportable Helmet Cells Not Reportable Boudreaux-[place] Bodies Not Reportable [place] Rings Not Reportable [place] Cells Not Reportable Bite Cells Not Reportable Crenated Cell Not Reportable Elliptocytes Not Reportable Acanthocytes (Spur) Not Reportable Rouleaux Not Reportable Hemoglobin C Crystals Not Reportable Schistocytes Not Reportable Malaria parasites Not Reportable Tito Bodies Not Reportable Hem Pathologist Commnt No Sodium 140 (137-145) mmol/L Potassium 4.2 (3.6-5.0) mmol/L Chloride 104.0 (98-107) mmol/L Carbon Dioxide 21 L (22-30) mmol/L Anion Gap 19 mmol/L BUN 9 (7-17) mg/dL Creatinine 0.6 (0.6-1.2) mg/dL Estimated GFR > 60 ml/min BUN/Creatinine Ratio 15 % Glucose 139 H (65-100) mg/dL Calcium 9.4 (8.4-10.2) mg/dL
[2021-03-17] MEDS ORDERED: methylPREDNISolone Sod Succinate 125 MG/2 ML INJ IV ONE (17:40)
[2021-03-17 17:41] LABS: Blood Urea Nitrogen 9 mg/dL (7-17); Calcium 9.4 mg/dL (8.4-10.2); Hemolysis Index 5
[2021-03-17] MEDS ORDERED: SODIUM CHLORIDE 0.9% 500 ML 500 ML IV ONE (17:41)
[2021-03-17] MEDS ORDERED: EPINEPHrine/PF 1 MG/1 ML INJ SUB-Q ONE (17:41)
[2021-03-17 17:42] LABS: BUN/Creatinine Ratio 15
[2021-03-17 18:15] LABS: RBC Morphology Normal; Total Cells Counted 100
--- NOTE | 2021-03-17 19:08 | XRay Report ---
CHEST 1 VIEW INDICATION / CLINICAL INFORMATION: dyspea asthma. COMPARISON: 03/30/2020 FINDINGS: SUPPORT DEVICES: None. HEART / MEDIASTINUM: No significant abnormality. LUNGS / PLEURA: No significant pulmonary or pleural abnormality. No pneumothorax. ADDITIONAL FINDINGS: No significant additional findings. IMPRESSION: 1. No acute findings. Signer Name: Conor Franklin MD Signed: 03/17/2021 7:04 PM Workstation Name: [id number]
--- NOTE | 2021-03-17 19:46 | History and Physical Report ---
History of Present Illness Chief complaint: Cant breathe History of present illness: 25 YO Female with Obesity Hypoventilation Syndrome, Moderate Persistent Asthma presents to ED for evaluation. Patient reports "I cannot breathe". Patient is in respiratory distress and is unable to provide detailed history. Patient is able to acknowledge symptoms using head gestures. Patient knowledges feeling short of breath over the past 1 day with persistent and worsening symptoms over the same timeframe. Patient acknowledges increased nebulizer use without relief. Patient transported to [facility] via private vehicle for further care and evaluation of the aforementioned symptoms. The patient was seen and evaluated in the emergency department. All lab and imaging studies reviewed. Patient found to have a pulse oximetry of 88% on room air which is consistent with acute hypoxemic respiratory failure, respiratory rate in the 30s, and a heart rate in the 130s, with a Peak flow of 150 L/min. Patient is anxious. Patient using accessory muscles to breathe, tripoding, and is unable to speak in complete sentences. Patient placed on supplemental oxygen and treated with IV steroid therapy and magnesium therapy with mild improvement in symptoms. Patient admitted to telemetry due to acute respiratory failure secondary to status asthmaticus. Patient treated with IV steroid therapy and supportive care. No further history is obtainable. Patient has a positive gag reflex and is able to protect her airwa the time my evaluation. No prior admission for review. All medication listed at time of admission has been reconciled. Advance care planning conducted in ED. Past History Past Medical History: other (See HPI) Past Surgical History: No surgical history, Other (Reviewed) Social history: single. denies: smoking, alcohol abuse, prescription drug abuse Family history: no significant family history, other (Reviewed) Medications and Allergies Allergies Allergy/AdvReac Type Severity Reaction Status Date / Time chlorpheniramine Allergy Swelling Verified 09/27/20 10:01 [From Dallergy] phenylephrine [From Dallergy] Allergy Swelling Verified 09/27/20 10:01 scopolamine [From Dallergy] Allergy Swelling Verified 09/27/20 10:01 Home Medications Medication Instructions Recorded Confirmed Last Taken Type predniSONE [Deltasone] 50 mg PO QDAY #7 tab 02/23/18 Unknown Rx Albuterol Sulfate [Ventolin HFA] 2 puff IH Q4H PRN #1 hfa.aer.ad 03/24/18 Unknown Rx Albuterol Mdi (or & Nicu Only) 2 puff IH QID PRN #1 inhalation 04/03/19 Unknown Rx [ProAir HFA Inhaler] Doxycycline Hyclate [Doxycycline 100 mg PO Q12HR 10 Days #20 tab 04/03/19 Unknown Rx Hyclate TAB] Benzonatate [Tessalon Perles] 100 mg PO Q8HR #30 capsule 03/30/20 Unknown Rx Prednisone [predniSONE 10 mg 10 mg PO .TAPER #21 tab.ds.pk 03/30/20 Unknown Rx (6-Day Pack, 21 Tabs)] Albuterol Sulfate [Proventil Hfa] 1 - 2 puff IH TID PRN #1 hfa.aer.ad 09/27/20 Unknown Rx predniSONE [Deltasone] 40 mg PO QDAY 5 Days #10 tab 09/27/20 Unknown Rx Review of Systems ROS unobtainable: due to mental status Exam - Constitutional Vitals: Temp Pulse Resp BP Pulse Ox 98.6 F 126 H 20 125/98 93 03/17/21 16:39 03/17/21 18:31 03/17/21 19:45 03/17/21 18:31 03/17/21 18:31 General appearance: Present: mild distress - EENT Eyes: Present: PERRL ENT: hearing intact, clear oral mucosa - Neck Neck: Present: supple, normal ROM - Respiratory Respiratory effort: labored, pursed lips, accessory muscle use, stridor Respiratory: bilateral: diminished, wheezing - Cardiovascular Rhythm: other (Tachycardia) - Extremities Extremities: pulses symmetrical, No edema Peripheral Pulses: within normal limits - Abdominal General gastrointestinal: Present: soft, non-tender, non-distended, normal bowel sounds Female genitourinary: Present: normal - Integumentary Integumentary: Present: clear, dry - Psychiatric Psychiatric: agitated - Neurologic Neurologic: CNII-XII intact Results - Labs CBC & Chem 7: 03/17/21 17:07 03/17/21 17:07 Labs: Abnormal lab results 03/17/21 03/17/21 Range/Units 17:07 17:07 WBC 13.7 H (4.5-11.0) K/mm3 RBC 5.09 H (3.65-5.03) M/mm3 MCH 27 L (28-32) pg Seg Neuts % (Manual) 89.0 H (40.0-70.0) % Lymphocytes % (Manual) 6.0 L (13.4-35.0) % Seg Neutrophils # Man 12.2 H (1.8-7.7) K/mm3 Lymphocytes # (Manual) 0.8 L (1.2-5.4) K/mm3 Carbon Dioxide 21 L (22-30) mmol/L Glucose 139 H (65-100) mg/dL Assessment and Plan - Patient Problems (1) Acute hypoxemic respiratory failure Current Visit: Yes Status: Acute Plan to address problem: Supplemental oxygen, pulse oximetry, nebulizer therapy, chest x-ray, arterial blood gas ordered and pending at time of admission. Will consider high flow supplemental oxygen as well as noninvasive positive pressure ventilation if patient is unable to maintain pulse oximetry with supplemental oxygen via nasal cannula. (2) Status asthmaticus Current Visit: Yes Status: Acute Qualifiers: Asthma severity: moderate Asthma persistence: persistent Qualified Code(s): J45.42 - Moderate persistent asthma with status asthmaticus Plan to address problem: IV steroid therapy, supportive care, continue medical management. Avoiding asthma triggers. (3) Obesity hypoventilation syndrome Current Visit: Yes Status: Acute Plan to address problem: Balanced diet, increase physical activity discharge, outpatient pulmonary follow-up for sleep study. (4) DVT prophylaxis Current Visit: Yes Status: Acute Plan to address problem: SCD to bilateral lower extremities while in bed, prophylactic anticoagulation (5) Advance care planning Current Visit: Yes Status: Acute Plan to address problem: Disease education conducted, care plan discussed, diagnosis discussed, patient is full code, patient using head gestures to acknowledge understanding agreement with care plan, +30 minutes.
[2021-03-17] MEDS ORDERED: oxyCODONE /ACETAMINOPHEN 5-325MG TAB PO PRN (19:47)
[2021-03-17] MEDS ORDERED: HYDROmorphone 1 MG/1 ML INJ IV PRN (19:47)
[2021-03-17] MEDS ORDERED: ACETAMINOPHEN 325 MG TAB PO PRN (19:47)
[2021-03-17] MEDS ORDERED: ONDANSETRON 4 MG/2 ML INJ IV PRN (19:47)
[2021-03-18] MEDS ORDERED: methylPREDNISolone Sod Succinate 40 MG/1 ML INJ IV SCH ×3 (02:00→10:00)
[2021-03-18] MEDS: HEPARIN 5,000 UNIT/1 ML VIAL SUB-Q SCH ×3 (03:41→21:57)
[2021-03-18 04:56] LABS: Blood Urea Nitrogen 9 mg/dL (7-17); Calcium 9.2 mg/dL (8.4-10.2); Hemolysis Index 44
[2021-03-18 05:02] LABS: BUN/Creatinine Ratio 23
[2021-03-18] MEDS: ALBUTEROL 2.5 MG/3 ML NEBU IH PRN ×2 (05:23→09:18)
--- NOTE | 2021-03-18 08:12 | Progress Note ---
Assessment and Plan Assessment and plan: #Acute hypoxic respiratory failure #Acute asthma exacerbation -chest x-ray negative -Asthma is managed by patient's primary care doctor; she takes Spiriva, Singulair and Advair at home -continue standing duo nebs and DuoNebs as needed -continue steroids, will convert to prednisone in a.m. -If worsens, could warrant pulmonology consult #Obesity -BMI 48 -Discussed importance of weight loss through lifestyle modification patient voiced understanding - Time + 10 minutes Disposition Plan: Continue medical management Total Time Spent with Patient (Minutes): 20 minutes History Interval history: Note events overnight. Patient reports feeling better than when she first arrived. Complains of cough and congestion. Hospitalist Physical - Physical exam Narrative exam: GENERAL: Obese. Lying in bed, no acute distress. HEENT: Nasal cannula at 3 L/min CHEST/LUNGS: Expiratory wheezes bilaterally. HEART/CARDIOVASCULAR: Tachycardic. No murmur, rubs or gallops appreciated. ABDOMEN: +BS. NT/ND. NEURO: No focal motor deficit. Follows all commands. EXTREMITIES: No cyanosis, clubbing or edema. PSYCH: Cooperative. - Constitutional Vitals: Temp Pulse Resp BP Pulse Ox 98.6 F 116 H 18 140/89 99 03/17/21 16:39 03/18/21 05:30 03/18/21 06:10 03/18/21 04:01 03/18/21 06:10 General appearance: Present: mild distress Results - Labs CBC & Chem 7: 03/17/21 17:07 03/18/21 04:10 Labs: Laboratory Last Values WBC 13.7 K/mm3 (4.5-11.0) H 03/17/21 17:07 RBC 5.09 M/mm3 (3.65-5.03) H 03/17/21 17:07 Hgb 13.9 gm/dl (10.1-14.3) 03/17/21 17:07 Hct 42.2 % (30.3-42.9) 03/17/21 17:07 MCV 83 fl (79-97) 03/17/21 17:07 MCH 27 pg (28-32) L 03/17/21 17:07 MCHC 33 % (30-34) 03/17/21 17:07 RDW 13.9 % (13.2-15.2) 03/17/21 17:07 Plt Count 310 K/mm3 (140-440) 03/17/21 17:07 Add Manual Diff Complete 03/17/21 17:07 Total Counted 100 03/17/21 17:07 Seg Neutrophils % Hydraulic Boom Operator 03/17/21 17:07 Seg Neuts % (Manual) 89.0 % (40.0-70.0) H 03/17/21 17:07 Lymphocytes % (Manual) 6.0 % (13.4-35.0) L 03/17/21 17:07 Monocytes % (Manual) 4.0 % (0.0-7.3) 03/17/21 17:07 Eosinophils % (Manual) 1.0 % (0.0-4.3) 03/17/21 17:07 Nucleated RBC % Not Reportable 03/17/21 17:07 Seg Neutrophils # Man 12.2 K/mm3 (1.8-7.7) H 03/17/21 17:07 Band Neutrophils # 0.0 K/mm3 03/17/21 17:07 Lymphocytes # (Manual) 0.8 K/mm3 (1.2-5.4) L 03/17/21 17:07 Abs React Lymphs (Man) 0.0 K/mm3 03/17/21 17:07 Monocytes # (Manual) 0.5 K/mm3 (0.0-0.8) 03/17/21 17:07 Eosinophils # (Manual) 0.1 K/mm3 (0.0-0.4) 03/17/21 17:07 Basophils # (Manual) 0.0 K/mm3 (0.0-0.1) 03/17/21 17:07 Metamyelocytes # 0.0 K/mm3 03/17/21 17:07 Myelocytes # 0.0 K/mm3 03/17/21 17:07 Promyelocytes # 0.0 K/mm3 03/17/21 17:07 Blast Cells # 0.0 K/mm3 03/17/21 17:07 WBC Morphology Not Reportable 03/17/21 17:07 Hypersegmented Neuts Not Reportable 03/17/21 17:07 Hyposegmented Neuts Not Reportable 03/17/21 17:07 Hypogranular Neuts Not Reportable 03/17/21 17:07 Smudge Cells Not Reportable 03/17/21 17:07 Toxic Granulation Not Reportable 03/17/21 17:07 Toxic Vacuolation Not Reportable 03/17/21 17:07 Dohle Bodies Not Reportable 03/17/21 17:07 Pelger-Huet Anomaly Not Reportable 03/17/21 17:07 Lucía Rods Not Reportable 03/17/21 17:07 Platelet Estimate Not Reportable 03/17/21 17:07 Clumped Platelets Not Reportable 03/17/21 17:07 Plt Clumps, EDTA Not Reportable 03/17/21 17:07 Large Platelets Not Reportable 03/17/21 17:07 Giant Platelets Not Reportable 03/17/21 17:07 Platelet Satelliting Not Reportable 03/17/21 17:07 Plt Morphology Comment Not Reportable 03/17/21 17:07 RBC Morphology Normal 03/17/21 17:07 Dimorphic RBCs Not Reportable 03/17/21 17:07 Polychromasia Not Reportable 03/17/21 17:07 Hypochromasia Not Reportable 03/17/21 17:07 Poikilocytosis Not Reportable 03/17/21 17:07 Anisocytosis Not Reportable 03/17/21 17:07 Microcytosis Not Reportable 03/17/21 17:07 Macrocytosis Not Reportable 03/17/21 17:07 Spherocytes Not Reportable 03/17/21 17:07 Pappenheimer Bodies Not Reportable 03/17/21 17:07 Sickle Cells Not Reportable 03/17/21 17:07 Target Cells Not Reportable 03/17/21 17:07 Tear Drop Cells Not Reportable 03/17/21 17:07 Ovalocytes Not Reportable 03/17/21 17:07 Helmet Cells Not Reportable 03/17/21 17:07 [place] Bodies Not Reportable 03/17/21 17:07 [place] Rings Not Reportable 03/17/21 17:07 [place] Cells Not Reportable 03/17/21 17:07 Bite Cells Not Reportable 03/17/21 17:07 Crenated Cell Not Reportable 03/17/21 17:07 Elliptocytes Not Reportable 03/17/21 17:07 Acanthocytes (Spur) Not Reportable 03/17/21 17:07 Rouleaux Not Reportable 03/17/21 17:07 Hemoglobin C Crystals Not Reportable 03/17/21 17:07 Schistocytes Not Reportable 03/17/21 17:07 Malaria parasites Not Reportable 03/17/21 17:07 Tito Bodies Not Reportable 03/17/21 17:07 Hem Pathologist Commnt No 03/17/21 17:07 Sodium 136 mmol/L (137-145) L 03/18/21 04:10 Potassium 4.7 mmol/L (3.6-5.0) 03/18/21 04:10 Chloride 101.2 mmol/L (98-107) 03/18/21 04:10 Carbon Dioxide 17 mmol/L (22-30) L 03/18/21 04:10 Anion Gap 23 mmol/L 03/18/21 04:10 BUN 9 mg/dL (7-17) 03/18/21 04:10 Creatinine 0.4 mg/dL (0.6-1.2) L 03/18/21 04:10 Estimated GFR > 60 ml/min 03/18/21 04:10 BUN/Creatinine Ratio 23 % 03/18/21 04:10 Glucose 170 mg/dL (65-100) H 03/18/21 04:10 Calcium 9.2 mg/dL (8.4-10.2) 03/18/21 04:10 Active Medications - Current Medications Current Medications: Generic Name Dose Route Start Last Admin Trade Name Freq PRN Reason Stop Dose Admin Acetaminophen 650 mg 03/17/21 19:47 Acetaminophen 325 Mg Tab PO Q4H PRN Pain MILD(1-3)/Fever >100.5/KHAN Albuterol 2.5 mg 03/17/21 19:47 03/18/21 05:23 Albuterol 2.5 Mg/3 Ml Nebu IH 2.5 mg Q4HRT PRN Administration Shortness Of Breath Heparin Sodium (Porcine) 5,000 unit 03/17/21 22:00 03/18/21 03:41 Heparin 5,000 Unit/1 Ml Vial SUB-Q Not Given Q12HR OTILIA Hydromorphone HCl 0.5 mg 03/17/21 19:47 Hydromorphone 1 Mg/1 Ml Inj IV Q23H PRN Pain , Severe (7-10) Methylprednisolone Sodium Succinate 40 mg 03/18/21 08:00 Methylprednisolone Sod Succinate 40 Mg/1 Ml Inj IV Q8HR OTILIA Ondansetron HCl 4 mg 03/17/21 19:47 Ondansetron 4 Mg/2 Ml Inj IV Q8H PRN Nausea And Vomiting Oxycodone/Acetaminophen 1 tab 03/17/21 19:47 Oxycodone /Acetaminophen 5-325mg Tab PO Q16H PRN Pain, Moderate (4-6) Sodium Chloride 10 ml 03/17/21 22:00 03/18/21 03:41 Sodium Chloride 0.9% 10 Ml Flush Syringe IV Not Given BID OTILIA Sodium Chloride 10 ml 03/17/21 19:47 Sodium Chloride 0.9% 10 Ml Flush Syringe IV PRN PRN LINE FLUSH
[2021-03-18] MEDS: IPRATROPIUM/ALBUTEROL SULFATE 3 ML AMPUL.NEB IH SCH ×3 (11:19→20:26)
[2021-03-18] MEDS: guaiFENesin ER 600 MG TAB PO SCH ×2 (15:31→21:57)
[2021-03-19] MEDS: IPRATROPIUM/ALBUTEROL SULFATE 3 ML AMPUL.NEB IH SCH ×4 (02:37→22:40)
[2021-03-19 06:14] LABS: Hematocrit 38.6 % (30.3-42.9); Hemoglobin 12.5 gm/dl (10.1-14.3); Mean Corpuscular HGB Conc 32 % (30-34); Mean Corpuscular Volume 85 fl (79-97); Platelet Count 302 K/mm3 (140-440); Red Blood Count 4.57 M/mm3 (3.65-5.03); Red Cell Distribution Width 14.1 % (13.2-15.2)
[2021-03-19 06:43] LABS: Blood Urea Nitrogen 18 mg/dL (7-17); Calcium 8.8 mg/dL (8.4-10.2); Hemolysis Index 5
[2021-03-19 06:47] LABS: BUN/Creatinine Ratio 30
[2021-03-19] MEDS: HEPARIN 5,000 UNIT/1 ML VIAL SUB-Q SCH ×2 (10:30→21:49)
[2021-03-19] MEDS: predniSONE 20 MG TAB PO SCH (10:30)
[2021-03-19] MEDS: guaiFENesin ER 600 MG TAB PO SCH ×2 (10:30→21:51)
--- NOTE | 2021-03-19 19:32 | Progress Note ---
Assessment and Plan Assessment and plan: #Acute hypoxic respiratory failure #Acute asthma exacerbation -chest x-ray negative -Asthma is managed by patient's primary care doctor; she takes Spiriva, Singulair and Advair at home -continue standing duo nebs and DuoNebs as needed -Transitioned steroids to prednisone 60 mg daily. Patient will be discharging with steroid taper. -Consulting Pulmonology for outpatient regimen; pending recommendations. #Obesity #Weight loss counseling #Exercise counseling -BMI 48 -Discussed importance of weight loss through lifestyle modification patient voiced understanding -Time: + 10 minutes #Advanced care planning -Disease education conducted, care plan discussed, diagnoses discussed, prognosis discussed, and patient acknowledges understanding with care plan -Time: +30 Disposition Plan: Continue medical management Total Time Spent with Patient (Minutes): 45 minutes History Interval history: No acute events overnight. Hospitalist Physical - Constitutional Vitals: Temp Pulse Resp BP Pulse Ox 98.0 F 107 H 20 128/71 97 03/19/21 08:09 03/19/21 14:41 03/19/21 14:41 03/19/21 08:09 03/19/21 14:41 General appearance: Present: no acute distress, well-nourished, obese - EENT Eyes: Present: PERRL, EOM intact ENT: hearing intact, clear oral mucosa, dentition normal - Neck Neck: Present: supple, normal ROM - Respiratory Respiratory effort: normal (On 2 L nasal cannula) Respiratory: bilateral: wheezing (Expiratory) - Cardiovascular Rhythm: regular Heart Sounds: Present: S1 & S2 - Extremities Extremities: no ischemia, pulses intact, pulses symmetrical, No edema, normal temperature, normal color, Full ROM Peripheral Pulses: within normal limits - Abdominal General gastrointestinal: soft, non-tender, non-distended, normal bowel sounds - Integumentary Integumentary: Present: clear, warm, dry - Psychiatric Psychiatric: appropriate mood/affect, intact judgment & insight, memory intact, cooperative - Neurologic Neurologic: CNII-XII intact, moves all extremities - Allied Health Allied health notes reviewed: nursing Results - Labs CBC & Chem 7: 03/19/21 05:13 03/19/21 05:13 Labs: Laboratory Last Values WBC 11.6 K/mm3 (4.5-11.0) H 03/19/21 05:13 RBC 4.57 M/mm3 (3.65-5.03) 03/19/21 05:13 Hgb 12.5 gm/dl (10.1-14.3) 03/19/21 05:13 Hct 38.6 % (30.3-42.9) 03/19/21 05:13 MCV 85 fl (79-97) 03/19/21 05:13 MCH 27 pg (28-32) L 03/19/21 05:13 MCHC 32 % (30-34) 03/19/21 05:13 RDW 14.1 % (13.2-15.2) 03/19/21 05:13 Plt Count 302 K/mm3 (140-440) 03/19/21 05:13 Add Manual Diff Complete 03/17/21 17:07 Total Counted 100 03/17/21 17:07 Seg Neutrophils % Licensing Engineer 03/17/21 17:07 Seg Neuts % (Manual) 89.0 % (40.0-70.0) H 03/17/21 17:07 Lymphocytes % (Manual) 6.0 % (13.4-35.0) L 03/17/21 17:07 Monocytes % (Manual) 4.0 % (0.0-7.3) 03/17/21 17:07 Eosinophils % (Manual) 1.0 % (0.0-4.3) 03/17/21 17:07 Nucleated RBC % Not Reportable 03/17/21 17:07 Seg Neutrophils # Man 12.2 K/mm3 (1.8-7.7) H 03/17/21 17:07 Band Neutrophils # 0.0 K/mm3 03/17/21 17:07 Lymphocytes # (Manual) 0.8 K/mm3 (1.2-5.4) L 03/17/21 17:07 Abs React Lymphs (Man) 0.0 K/mm3 03/17/21 17:07 Monocytes # (Manual) 0.5 K/mm3 (0.0-0.8) 03/17/21 17:07 Eosinophils # (Manual) 0.1 K/mm3 (0.0-0.4) 03/17/21 17:07 Basophils # (Manual) 0.0 K/mm3 (0.0-0.1) 03/17/21 17:07 Metamyelocytes # 0.0 K/mm3 03/17/21 17:07 Myelocytes # 0.0 K/mm3 03/17/21 17:07 Promyelocytes # 0.0 K/mm3 03/17/21 17:07 Blast Cells # 0.0 K/mm3 03/17/21 17:07 WBC Morphology Not Reportable 03/17/21 17:07 Hypersegmented Neuts Not Reportable 03/17/21 17:07 Hyposegmented Neuts Not Reportable 03/17/21 17:07 Hypogranular Neuts Not Reportable 03/17/21 17:07 Smudge Cells Not Reportable 03/17/21 17:07 Toxic Granulation Not Reportable 03/17/21 17:07 Toxic Vacuolation Not Reportable 03/17/21 17:07 Dohle Bodies Not Reportable 03/17/21 17:07 Pelger-Huet Anomaly Not Reportable 03/17/21 17:07 Lucía Rods Not Reportable 03/17/21 17:07 Platelet Estimate Not Reportable 03/17/21 17:07 Clumped Platelets Not Reportable 03/17/21 17:07 Plt Clumps, EDTA Not Reportable 03/17/21 17:07 Large Platelets Not Reportable 03/17/21 17:07 Giant Platelets Not Reportable 03/17/21 17:07 Platelet Satelliting Not Reportable 03/17/21 17:07 Plt Morphology Comment Not Reportable 03/17/21 17:07 RBC Morphology Normal 03/17/21 17:07 Dimorphic RBCs Not Reportable 03/17/21 17:07 Polychromasia Not Reportable 03/17/21 17:07 Hypochromasia Not Reportable 03/17/21 17:07 Poikilocytosis Not Reportable 03/17/21 17:07 Anisocytosis Not Reportable 03/17/21 17:07 Microcytosis Not Reportable 03/17/21 17:07 Macrocytosis Not Reportable 03/17/21 17:07 Spherocytes Not Reportable 03/17/21 17:07 Pappenheimer Bodies Not Reportable 03/17/21 17:07 Sickle Cells Not Reportable 03/17/21 17:07 Target Cells Not Reportable 03/17/21 17:07 Tear Drop Cells Not Reportable 03/17/21 17:07 Ovalocytes Not Reportable 03/17/21 17:07 Helmet Cells Not Reportable 03/17/21 17:07 B[place] Bodies Not Reportable 03/17/21 17:07 [place] Rings Not Reportable 03/17/21 17:07 [place] Cells Not Reportable 03/17/21 17:07 Bite Cells Not Reportable 03/17/21 17:07 Crenated Cell Not Reportable 03/17/21 17:07 Elliptocytes Not Reportable 03/17/21 17:07 Acanthocytes (Spur) Not Reportable 03/17/21 17:07 Rouleaux Not Reportable 03/17/21 17:07 Hemoglobin C Crystals Not Reportable 03/17/21 17:07 Schistocytes Not Reportable 03/17/21 17:07 Malaria parasites Not Reportable 03/17/21 17:07 Tito Bodies Not Reportable 03/17/21 17:07 Hem Pathologist Commnt No 03/17/21 17:07 Sodium 145 mmol/L (137-145) D 03/19/21 05:13 Potassium 4.2 mmol/L (3.6-5.0) 03/19/21 05:13 Chloride 109.1 mmol/L (98-107) H 03/19/21 05:13 Carbon Dioxide 22 mmol/L (22-30) 03/19/21 05:13 Anion Gap 18 mmol/L 03/19/21 05:13 BUN 18 mg/dL (7-17) H 03/19/21 05:13 Creatinine 0.6 mg/dL (0.6-1.2) 03/19/21 05:13 Estimated GFR > 60 ml/min 03/19/21 05:13 BUN/Creatinine Ratio 30 % 03/19/21 05:13 Glucose 122 mg/dL (65-100) H 03/19/21 05:13 Calcium 8.8 mg/dL (8.4-10.2) 03/19/21 05:13 Anders/IV: Voiding Method Toilet Active Medications - Current Medications Current Medications: Generic Name Dose Route Start Last Admin Trade Name Freq PRN Reason Stop Dose Admin Acetaminophen 650 mg 03/17/21 19:47 Acetaminophen 325 Mg Tab PO Q4H PRN Pain MILD(1-3)/Fever >100.5/KHAN Albuterol 2.5 mg 03/17/21 19:47 03/18/21 09:18 Albuterol 2.5 Mg/3 Ml Nebu IH 2.5 mg Q4HRT PRN Administration Shortness Of Breath Albuterol/Ipratropium 1 ampul 03/18/21 08:15 03/19/21 14:40 Ipratropium/Albuterol Sulfate 3 Ml Ampul.Neb IH 1 ampul Q6HRT OTILIA Administration Guaifenesin 600 mg 03/18/21 15:00 03/19/21 10:30 Guaifenesin Er 600 Mg Tab PO 600 mg BID OTILIA Administration Heparin Sodium (Porcine) 5,000 unit 03/17/21 22:00 03/19/21 10:30 Heparin 5,000 Unit/1 Ml Vial SUB-Q 5,000 unit Q12HR OTILIA Administration Hydromorphone HCl 0.5 mg 03/17/21 19:47 Hydromorphone 1 Mg/1 Ml Inj IV Q23H PRN Pain , Severe (7-10) Ondansetron HCl 4 mg 03/17/21 19:47 Ondansetron 4 Mg/2 Ml Inj IV Q8H PRN Nausea And Vomiting Oxycodone/Acetaminophen 1 tab 03/17/21 19:47 Oxycodone /Acetaminophen 5-325mg Tab PO Q16H PRN Pain, Moderate (4-6) Prednisone 60 mg 03/19/21 10:00 03/19/21 10:30 Prednisone 20 Mg Tab PO 60 mg QDAY OTILIA Administration Sodium Chloride 10 ml 03/17/21 22:00 03/18/21 21:59 Sodium Chloride 0.9% 10 Ml Flush Syringe IV 10 ml BID OTILIA Administration Sodium Chloride 10 ml 03/17/21 19:47 Sodium Chloride 0.9% 10 Ml Flush Syringe IV PRN PRN LINE FLUSH
[2021-03-20] MEDS: IPRATROPIUM/ALBUTEROL SULFATE 3 ML AMPUL.NEB IH SCH ×2 (02:58→08:54)
[2021-03-20 06:08] LABS: Basophils % (Auto) 0.3 % (0.0-1.8); Eosinophils # (Auto) 0.1 K/mm3 (0.0-0.4); Eosinophils % (Auto) 0.5 % (0.0-4.3); Hematocrit 39.5 % (30.3-42.9); Hemoglobin 12.4 gm/dl (10.1-14.3); Lymphocytes % (Auto) 26.3 % (13.4-35.0); Mean Corpuscular HGB Conc 31 % (30-34); Mean Corpuscular Volume 84 fl (79-97); Monocytes # (Auto) 0.7 K/mm3 (0.0-0.8); Monocytes % (Auto) 5.9 % (0.0-7.3); Platelet Count 306 K/mm3 (140-440)
[2021-03-20 06:14] LABS: Blood Urea Nitrogen 16 mg/dL (7-17); Hemolysis Index 10
[2021-03-20 06:23] LABS: BUN/Creatinine Ratio 27
[2021-03-20] MEDS: guaiFENesin ER 600 MG TAB PO SCH (09:13)
[2021-03-20] MEDS: predniSONE 20 MG TAB PO SCH (09:13)
[2021-03-20] MEDS: HEPARIN 5,000 UNIT/1 ML VIAL SUB-Q SCH (09:13)
[2021-03-20 11:53] VITALS: BP 126/86
--- NOTE | 2021-03-20 12:59 | Event Note ---
Date: 03/20/21 Suggest Symbicort 160 2 puffs BID if able to afford. The generic form of the is Wilexa, same strengths. This would work as well. If patient cannot afford that, then would do Pulmicort 180 2 puffs BID. Follow up PCP.
== END 2021-03-20 13:40 | disposition home or self-care (01) | DRG 189 ==
LOC: ED 16:31 → 4A 19:47
PROVIDERS: ADMIT Internal Medicine; ATTEND Student in an Organized Health Care Education/Training Program
DX: J96.01 Acute respiratory failure with hypoxia (principal); E66.2 Morbid (severe) obesity with alveolar hypoventilation; J45.901 Unspecified asthma with (acute) exacerbation; Z68.42 Body mass index [BMI] 45.0-49.9, adult
CPT/HCPCS: 36415; 71045; 80048; 85007; 85025; 85027; 93005; 94640; 94644; 94760; G0378; J0171; J1644; J2920; J2930; J3475; J7040; J7512

== ENCOUNTER 2021-10-05 14:26 | Emergency (ER) | payer SELFPAY ==
[2021-10-05] MEDS ORDERED: methylPREDNISolone Sod Succinate 125 MG/2 ML INJ IV ONE (20:39)
[2021-10-05] MEDS ORDERED: MAGNESIUM SULFATE 2 GM/50 ML BAG IV ONE (20:39)
[2021-10-05] MEDS ORDERED: ALBUTEROL 2.5 MG/3 ML NEBU IH ONE (20:41)
--- NOTE | 2021-10-05 20:46 | Emergency Department Report ---
ED Asthma HPI - General Chief Complaint: Adult Asthma Stated Complaint: HAVING TROUBLE BREATHING Time Seen by Provider: 10/05/21 20:38 Source: patient Mode of arrival: Ambulatory Limitations: No Limitations - History of Present Illness Initial Comments: 23-year-old morbidly obese female with a history of asthma with presented with an episodes that started this morning progressively getting worse. Patient denies any chest pain or palpitation. She says she has tried at home breathing treatment with minimal improvement. No fever or chills reported. No other modifying or associated factors reported. MD Complaint: "asthma attack" - Related Data Previous Rx's Medication Instructions Recorded Last Taken Type Albuterol Sulfate [Proventil Hfa] 2 puff IH QID PRN #2 inh 03/20/21 Unknown Rx Budesonide [Pulmicort Flexhaler] 180 mcg IH BID 30 Days #1 03/20/21 Unknown Rx aer[facility]pow[facility] Montelukast [Singulair] 10 mg PO QAM #30 03/20/21 Unknown Rx predniSONE [Deltasone] 20 mg PO QDAY #15 tab 03/21/21 Unknown Rx predniSONE [Deltasone] 20 mg PO QDAY 5 Days #5 tab NS 10/05/21 Unknown Rx Allergies Allergy/AdvReac Type Severity Reaction Status Date / Time chlorpheniramine Allergy Swelling Verified 03/18/21 11:59 [From Dallergy] phenylephrine [From Dallergy] Allergy Swelling Verified 03/18/21 11:59 scopolamine [From Dallergy] Allergy Swelling Verified 03/18/21 11:59 ED Review of Systems ROS: Stated complaint: HAVING TROUBLE BREATHING Other details as noted in HPI Comment: All other systems reviewed and negative Respiratory: shortness of breath, wheezing ED Past Medical Hx - Past Medical History Previous Medical History?: Yes Hx Asthma: Yes - Surgical History Past Surgical History?: Yes Additional Surgical History: wisdom teeth - Social History Smoking Status: Never Smoker - Medications Home Medications: Home Medications Medication Instructions Recorded Confirmed Last Taken Type Albuterol Sulfate [Proventil Hfa] 2 puff IH QID PRN #2 inh 03/20/21 Unknown Rx Budesonide [Pulmicort Flexhaler] 180 mcg IH BID 30 Days #1 03/20/21 Unknown Rx aer[facility][email or web address] Montelukast [Singulair] 10 mg PO QAM #30 03/20/21 Unknown Rx predniSONE [Deltasone] 20 mg PO QDAY #15 tab 03/21/21 Unknown Rx predniSONE [Deltasone] 20 mg PO QDAY 5 Days #5 tab NS 10/05/21 Unknown Rx ED Physical Exam - General Limitations: No Limitations General appearance: alert, in no apparent distress - Head Head exam: Present: normal inspection - Eye Eye exam: Present: normal appearance - ENT ENT exam: Present: normal exam, normal orophraynx, mucous membranes moist - Neck Neck exam: Present: normal inspection, full ROM. Absent: tenderness - Respiratory Respiratory exam: Present: respiratory distress (Due to wheezing), wheezes - Cardiovascular Cardiovascular Exam: Present: regular rate, normal rhythm, normal heart sounds - GI/Abdominal GI/Abdominal exam: Present: soft, normal bowel sounds. Absent: distended, tenderness - Back Exam Back exam: Present: normal inspection. Absent: tenderness, CVA tenderness (R), CVA tenderness (L) - Neurological Exam Neurological exam: Present: alert, oriented X3 - Psychiatric Psychiatric exam: Present: normal affect, normal mood - Skin Skin exam: Present: warm, normal color ED Course Vital Signs 10/05/21 10/05/21 10/05/21 16:27 21:01 21:03 Temperature 98.1 F Pulse Rate 97 H 94 H Respiratory 20 20 Rate Blood Pressure 143/92 150/101 [97] O2 Sat by Pulse 98 100 100 Oximetry - Reevaluation(s) Reevaluation #1: 10/05/21 20:44 Here with wheezing associated with shortness of breath that started this morning with a history of asthma and noted with diffuse scanty expiratory wheezing--this is likely asthma exacerbation but could not rule out any other cardiopulmonary findings--such as myocardial infarction, pulmonary embolism, pneumothorax, or pneumonia this or unlikely considering present symptoms so we will go ahead and treat with albuterol breathing treatment, Solu-Medrol 125 mg IV and magnesium 2 mg IV x1. Reevaluation #2: 10/05/21 22:22 Patient reevaluated and reports feeling much better wheezing is improved at this point and patient has a stable vital signs and ready to be discharged home. We will discharge patient home on prednisone 20 mg for 5 days and to continue taking breathing treatment as prescribed by her primary doctor. ED Medical Decision Making - Medical Decision Making See progress notes for details - Differential Diagnosis See progress note for details Critical care attestation.: If time is entered above; I have spent that time in minutes in the direct care of this critically ill patient, excluding procedure time. ED Disposition Clinical Impression: Acute asthma exacerbation Qualifiers: Asthma severity: moderate Asthma persistence: unspecified Qualified Code(s): J45.901 - Unspecified asthma with (acute) exacerbation Disposition: 01 HOME / SELF CARE / HOMELESS Is pt being admited?: No Does the pt Need Aspirin: No Condition: Stable Instructions: Asthma, Adult, [id number], Asthma Attack Prevention, Adult Additional Instructions: Take and complete your steroid prednisone for 5 days as prescribed to continue to help your symptoms Please continue your breathing treatment as prescribed by your primary doctor Please call and schedule follow-up with your primary doctor in the next 3 to 5 days for progress Please do not hesitate to call or return to emergency if your symptoms worsen Prescriptions: predniSONE [Deltasone] 20 mg PO QDAY 5 Days #5 tab NS Referrals: DEVANTE CARDOSO MD [Primary Care Provider] - 3-5 Days Time of Disposition: 22:26
[2021-10-05 22:32] VITALS: BP 158/97
== END 2021-10-05 22:46 | disposition home or self-care (01) ==
LOC: ED 14:26
DX: J45.901 Unspecified asthma with (acute) exacerbation (principal); Z88.8 Allergy status to other drugs, medicaments and biological substances
CPT/HCPCS: 94640; 96365; 96375; 99283; J2930; J3475